=== PATIENT | female | born 2000 | race Caucasian/White ===

== ENCOUNTER 2023-04-09 21:51 | Emergency (ER) | payer OTHER, SELFPAY ==
[2023-04-09 21:57] VITALS: BP 130/86; PULSE 85; RESP 16; TEMP 36.5; O2SAT 96; BMI 23.5
--- NOTE | 2023-04-09 22:24 | CRLHL7_ITS ---
For Patients: As a result of the Cures Act, medical imaging exams and procedure reports are released immediately into your electronic medical record. You may view this report before your referring provider. If you have questions, please contact your health care provider. INDICATION: Ankle injury. COMPARISON: None. FINDINGS/IMPRESSION: Right ankle, three views. There is soft tissue swelling about the ankle, most severe over the lateral malleolus. No fracture is identified and there is no dislocation or other acute osseous finding. Dictated by Paul Wyatt MD @ 04/10/2023 12:31:25 AM Dictated by: Paul Wyatt MD @ 04/10/2023 00:31:58 (Electronically Signed)
--- NOTE | 2023-04-09 22:25 | ED.GENADULT ---
HPI - General Adult General Chief complaint: Extremity Pain/Injury, Lower Stated complaint: Right ankle injury Time Seen by Provider: 04/09/23 22:25 History of Present Illness HPI narrative: 23-year-old young woman accompanied by boyfriend and cousin, who I believe is a nurse, presenting to the emergency department with concern of right ankle pain. She does not report injuring this ankle at least prior. Was walking her dog and describes an inversion injury of the right ankle. She reports being unable to bear weight due to pain. No treatments. No other injuries apparently sustained. 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 Related Data Home Medications Medication Instructions Recorded Confirmed escitalopram oxalate 20 mg tablet 20 mg PO DAILY 04/09/23 04/09/23 (Lexapro) Allergies Allergy/AdvReac Type Severity Reaction Status Date / Time No Known Allergies Allergy Verified 04/09/23 21:57 Review of Systems Status of ROS: Reports: 6 or more systems reviewed and unremarkable except as noted in History and below PFSH [facility] Social History Smoking Status: Never smoker How often do you have a drink containing alcohol: 2-4 times a month How many standard drinks containing alcohol do you have on a typical day: 3 or 4 AUDIT-C Alcohol total score: 3 Non-prescribed substance use: denies use Exam Narrative: Exam Narrative: Pleasant. She is not demonstrating a great deal of pain but reportedly moaning after myself and nursing leave the room. She has marked swelling over the lateral malleolus of the right ankle. She is tender over the inferior and posterior portion of the distal malleolus there. No anterior ankle or navicular or base of 5th metatarsal tenderness. No medial malleolar tenderness. There is no laxity to varus or valgus stressors or drawer testing though manipulation of the heel is painful. Const: Vital Signs, click to edit/add: Vital Signs - 24 hr 04/09/23 21:57 04/09/23 23:20 Temperature 97.7 F Pulse Rate [Pulse Oximeter] 85 76 Respiratory Rate 16 16 Blood Pressure [Ri ght Upper Arm] 130/86 Pulse Oximetry 96 Oxygen Delivery Me thod Room Air Documenting provider has reviewed patient's vital signs: yes Course Vital Signs Vital signs: Initial Vital Signs Temperature 97.7 F 04/09/23 21:57 Temperature Source Temporal Artery Scan 04/09/23 21:57 Pulse Rate 85 04/09/23 21:57 Respiratory Rate 16 04/09/23 21:57 Blood Pressure 130/86 04/09/23 21:57 Blood Pressure Mean 100 04/09/23 21:57 Blood Pressure Position High-Fowlers 04/09/23 21:57 Pulse Oximetry 96 04/09/23 21:57 Oxygen Delivery Method Room Air 04/09/23 21:57 Vital Signs Temperature 97.7 F 04/09/23 21:57 Pulse Rate 85 04/09/23 21:57 Respiratory Rate 16 04/09/23 21:57 Blood Pressure 130/86 04/09/23 21:57 Pulse Oximetry 96 04/09/23 21:57 Oxygen Delivery Method Room Air 04/09/23 21:57 Temperature 97.7 F 04/09/23 21:57 Pulse Rate 76 04/09/23 23:20 Respiratory Rate 16 04/09/23 23:20 Blood Pressure 130/86 04/09/23 21:57 Pulse Oximetry 96 04/09/23 21:57 Oxygen Delivery Method Room Air 04/09/23 21:57 Medical Decision Making MDM Narrative Medical decision making narrative: X-rays were ordered of the ankle. I cannot clear by [place] ankle rules. Given ice pack and ibuprofen. Roger wraps to apply the ice pack. This apparently causes more throbbing pain. I loosen this ice pack a little bit. This is applied after reviewing a three-view x-ray of the ankle. Mortise looks to be intact by my read. I do not appreciate any acute bony abnormality. There is marked soft tissue swelling at the lateral ankle. X-ray findings would support sprain. Cousin is concerned about her pain and would be requesting pain medication beyond ibuprofen. We did discuss. See patient discharge plan Work note written. Discharge Plan Discharge Clinical Impression: Ankle sprain Patient Disposition: Home w/ Parent or Adult Condition: Stable Additional Instructions: Definitely limit ambulation over the next 2-3 days. I would though do some tolowa dee-ni' movements of your foot/ankle over this time. Use crutches to rest your ankle. Over the next few days especially but maybe over the next week or longer, would apply ice as discussed at least twice daily. Do look for some of those ice bags. Elevate at rest. Compress with Roger wrap as having less fluid in there is more comfortable. Can take up to 800 mg of ibuprofen per dose or up to 1000 mg of acetaminophen per dose. These can be combined. No alternative to the ibuprofen might be up to 500 mg of naproxen 2 times daily. I apologize that 10 is the smallest number of [place] we have in [facility] at this time. I do not expect that you will need all of these. Go ahead and take 2 of them once you get them or when you get home. Remember that each tablet of [place] contains 325 mg of acetaminophen. See handout for rehabilitation. Prescriptions: No Action escitalopram oxalate [Lexapro] 20 mg tablet 20 mg PO DAILY Stand Alone Forms: [employer] Info Instructions
[2023-04-09] MEDS: IBUPROFEN 400 MG TABLET 800 MG PO (22:47)
[2023-04-09 23:20] VITALS: PULSE 76; RESP 16
== END 2023-04-09 23:21 | disposition home or self-care (01) ==
LOC: ED 23:10
PROVIDERS: Emergency Provider Family Medicine
DX: S93.401A Sprain of unspecified ligament of right ankle, initial encounter (principal); X58.XXXA Exposure to other specified factors, initial encounter; Y93.K1 Activity, walking an animal
CPT/HCPCS: 73610; 99283; 99284; A9270